=== PATIENT | female | born 1965 | race Caucasian/White ===

== ENCOUNTER 2023-02-17 10:04 | Emergency (ER) | payer OTHER, SELFPAY ==
--- NOTE | ~2023-02-17 | XR_ITS ---
EXAMINATION: XR SHOULDER, LEFT CLINICAL INFORMATION: Pain. COMPARISON: None available. TECHNIQUE: Three views of the left shoulder. FINDINGS: Alignment is anatomic. Mild degenerative changes in the glenohumeral joint. No fracture. The visualized left lung and chest wall are unremarkable. XR/XR shoulder LT min 2V IMPRESSION: Mild degenerative changes. No fracture.
[2023-02-17 10:24] VITALS: BP 168/90; PULSE 93; RESP 18; TEMP 36.7; O2SAT 99; BMI 25.4
--- NOTE | 2023-02-17 11:39 | ED_ITS ---
HPI - Extremity Problem General Chief complaint: Extremity Injury, Upper Stated complaint: L shoulder inj Time Seen by Provider: 02/17/23 11:35 Source: patient, RN notes reviewed and old records reviewed Mode of arrival: ambulatory History of Present Illness HPI Narrative: 57-year-old female with no significant past medical history presenting to the ED complaining of left shoulder pain x 1 week worsening over the past 2 nights. Admits does a lot of physical activity however denies known injury/trauma or fall or heavy lifting. Reports intermittent radiation down LUE. Denies numbness/tingling, weakness, chest pain/shortness of breath. Took Motrin at home without relief. MD Complaint: extremity pain Related Data Previous Rx's Medication Instructions Recorded acetaminophen 500 mg tablet 500 mg PO Q6H PRN fever or pain 02/17/23 (Tylenol Extra Strength) #14 tabs cyclobenzaprine 5 mg tablet 5 mg PO Q8H PRN pain (scale score 02/17/23 7-10) 5 days #14 tabs ketorolac 10 mg tablet 10 mg PO TID PRN pain 5 days #15 02/17/23 tabs lidocaine 5 % topical patch 1 patch topical DAILY PRN pain #30 02/17/23 (Lidoderm) ea Allergies Allergy/AdvReac Type Severity Reaction Status Date / Time No Known Allergies Allergy Verified 02/17/23 10:23 Review of Systems Review of Systems: Constitutional: No Fever, No Chills ENT/Mouth: No Ear Pain, No Nasal Congestion, No sore throat, No Rhinorrhea, No Swallowing Difficulty Cardiovascular: No Chest Pain, No SOB Respiratory: No Cough, No Sputum, No Wheezing Gastrointestinal: No Nausea, No Vomiting, No Diarrhea, No Constipation, No Abdominal pain Genitourinary: No Urinary Incontinence/retention Musculoskeletal: +joint pain, No Myalgias, No Joint Swelling Skin: No Skin Lesions, No rash Neuro: No Weakness, No Numbness, No Paresthesias Yes all other systems are reviewed and are negative Constitutional: Constitutional: Reports as per [facility] Past Medical History Attestation statement: The following information was validated with the patient. Source: old records reviewed Social History Social History Advance Directives: No Advance Directives Information Provided: No Physical Exam Vital Signs: Vital Signs: Last Vital Signs Temp 98.0 F 02/17/23 10:24 Pulse 93 02/17/23 10:24 Resp 18 02/17/23 10:24 BP 168/90 H 02/17/23 10:24 Pulse Ox 99 02/17/23 10:24 O2 Del Method Room Air 02/17/23 10:24 BMI result Body Mass Index 25.4 Const: General: cooperative, healthy appearing and no acute distress Orientation/consciousness: patient oriented x3 Limitations: no limitations HEENT: Head: Yes normal to inspection and Yes atraumatic Ears: hearing grossly normal bilaterally General nose exam: Normal external nose present Face and sinus: Yes normal facial exam Eyes: General: appearance normal, both eyes and all related structures EOM: EOMs intact bilaterally Neck: Other: No midline cervical spinous tenderness Neck: Yes normal visual inspection, Yes no meningeal signs, No anterior neck swelling and No torticollis Resp: Effort & Inspection: normal respiratory effort and no respiratory distress Cardio: Rate: regular rate Back/Spine/Pelvis: Other: No midline thoracic/lumbar spinous tenderness/step-off or deformity Skin: Rashes: no rashes Wounds: no wounds Neuro: General: patient oriented x3, tone normal and no meningeal signs Cranial nerves: Yes CN's II-XII intact bilaterally Gait exam (Neuro): Normal gait present Extrem: Other: No shoulder deformity. No erythema/warmth. +L shoulder > deltoid ttp. Limited ROM 2/2 pain. NV intact distally General: Yes normal to inspection Course Course Course Narrative: XR shoulder LT min 2V IMPRESSION: Mild degenerative changes. No fracture. Results discussed with patient including worrisome signs and symptoms and strict return precautions, and when to return to the emergency department. They verbalized understanding and feel safe for discharge at this time. Medications Administered Discontinued Medications Generic Name Dose Route Start Last Admin Trade Name Freq PRN Reason Stop Dose Admin Ketorolac Tromethamine 30 mg 02/17/23 11:47 02/17/23 12:17 Ketorolac Tromethamine 30 Mg/Ml Vial IM 02/17/23 11:48 30 mg ONCE ONE Administration Lidocaine 1 patch 02/17/23 11:47 02/17/23 12:17 Lidocaine 4 % Patch Adh..Patch TRANSDERMA 02/17/23 11:48 1 patch ONCE ONE Administration Protocol Medical Decision Making Medical Decision Making MDM Narrative: 57-year-old female with no significant past medical history presenting to the ED complaining of left shoulder pain x 1 week worsening over the past 2 nights. On exam vital signs stable, NAD, nontoxic appearing, physical exam as noted above with her shoulder/deltoid tenderness. Concern for MSK pain/strain versus tendinitis/rotator cuff injury or bursitis. Lower suspicion for ACS Plan: EKG, XR, IM Toradol, Lidoderm patch, Ortho f/u Please refer to course for remaining clinical decision making, interpretation of labs/imaging results, and discussions with consultants and/or family members. Differential Diagnosis Differential Diagnoses: The differential diagnosis associated with the presentation includes As above Independent Interpretation I performed an independent interpretation of an: EKG (EKG normal sinus rhythm rate of 82. MN interval 132. QTC 462. No STEMI. no priors to compare) Radiology Impression Discussion of test interpretation with radiology: I have reviewed the radiologist's reading. External Record Review External record reviewed: Inpatient record, Office record, Outpatient record, Prior outpatient labs, Prior outpatient radiology, Primary care record and Outside ED record Tests considered The following testing was considered but not selected: As above Prescription Management I considered prescription management with: Pain Medication Discharge Plan Discharge Clinical Impression: Tendinitis of shoulder, Degenerative arthritis of shoulder region Patient Disposition: Home, Self-Care Instructions: Rotator Cuff Tendinitis (ED) Additional Instructions: your x-ray shows degenerative changes Your pain is likely musculoskeletal/tendinitis Flexeril is a muscle relaxer, take at night as it makes you drowsy, do not drive, drink alcohol, or operate machinery while taking it Toradol as an anti-inflammatory / pain medication, take with food. Please do not take both Toradol, Motrin/ibuprofen or Aleve, pick 1 medication as they are similar Lidoderm patches are numbing patches, apply to painful area In addition take Tylenol at home If symptoms persist or worsen, pain becomes unbearable, you developed urinary retention or incontinence, or weakness return to the ED Prescriptions: New acetaminophen [Tylenol Extra Strength] 500 mg tablet 500 mg PO Q6H PRN (Reason: fever or pain) Qty: 14 0RF lidocaine [Lidoderm] 5 % adhesive patch,medicated 1 patch topical DAILY MDD remove after 12 hours PRN (Reason: pain) Qty: 30 0RF Rx Instructions: leave on most painful area for up to 12 hrs cyclobenzaprine 5 mg tablet 5 mg PO Q8H PRN (Reason: pain (scale score 7-10)) 5 Days Qty: 14 0RF ketorolac 10 mg tablet 10 mg PO TID PRN (Reason: pain) 5 Days Qty: 15 0RF Referrals: [facility] – [place] Orth[facility] Surgeons [Provider Group] - 1 week Interventions: ED Discharge Assessment Last Done: 02/17/23 12:28 Discharge Date/Time: 02/17/23 12:29
--- NOTE | 2023-02-17 11:40 | ECG_ITS ---
Test Reason : left shoulder Blood Pressure : / mmHG Vent. Rate : 082 BPM Atrial Rate : 082 BPM P-R Int : 132 ms QRS Dur : 082 ms QT Int : 396 ms P-R-T Axes : 043 046 069 degrees QTc Int : 462 ms Normal sinus rhythm Normal ECG No previous ECGs available Referred By: Dilia Awan Electronically Signed By:AMISHA LAUREN MD
[2023-02-17] MEDS: Lidocaine 4 % Patch ADH..PATCH 1 PATCH TRANSDERMA (12:17)
[2023-02-17] MEDS: Ketorolac Tromethamine 30 MG/ML VIAL IM (12:17)
== END 2023-02-17 12:29 | disposition home or self-care (01) ==
PROVIDERS: Emergency Provider Emergency Medicine
DX: M75.92 Shoulder lesion, unspecified, left shoulder (principal); M19.012 Primary osteoarthritis, left shoulder; M25.512 Pain in left shoulder
CPT/HCPCS: 73030; 93005; 96372; 99283; 99284; J1885